=== PATIENT | male | born 1955 | race Caucasian/White ===

== ENCOUNTER 2017-06-16 14:54 | Emergency (ER) | payer SELFPAY ==
[2017-06-16 15:13] VITALS: BP 146/99
[2017-06-16] MEDS ORDERED: Sodium Chloride 0.9% 10 ML Syringe FLUSH PRN (15:50)
--- NOTE | 2017-06-16 15:58 | EDM.PDOC ---
ED HPI GENERAL MEDICAL PROBLEM - General Chief Complaint: Upper Extremity Injury/Pain Stated Complaint: SIDE PAIN Time Seen by Provider: 06/16/17 15:35 Source of Information: Reports: Patient History Limitations: Reports: No Limitations - History of Present Illness INITIAL COMMENTS - FREE TEXT/NARRATIVE: Patient is a 61-year-old male presents ED complaining of muscle spasms to his left upper extremity and thorax region. Patient states approximately one week ago he noticed his left arm was weaker and uncoordinated. He felt clumsy with it. Still able to grasp onto items but fine movements were definitely decreased. States 3 days ago noted intermittent muscle spasms to his left upper extremity and thorax region. Unclear why. He was seen by his chiropractor today when adjusting thorax spine experienced muscle spasms again that lasted about 1 -2 minutes and resolved on its own. There is no pain associated with it. He recommended patient get checked out. Of note patient does have a history of sciatica to his left lower leg has been dealing with for the past few weeks. Over the past week symptoms have improved. States it is difficult to determine if weakness to his left lower leg is due to sciatica. He has been limping with walking. He has no history of stroke. He has a history of coronary disease with one stent placement approximately 3 years ago. He takes baby aspirin and simvastatin daily. He has no history of arrhythmias. Denies any slurred speech, difficult swallowing, vision changes, headache, numbness or tingling, chest pain , shortness of breath, nausea/vomiting, abdominal pain, dysuria, claudication, or any additional complaint. Patient smokes 1.5 packs per cigarettes per day Past medical history includes hypertension, hypercholesteremia, coronary disease - Related Data Allergies Allergy/AdvReac Type Severity Reaction Status Date / Time No Known Allergies Allergy Verified 06/16/17 15:12 Home Meds: Home Meds Aspirin 81 mg PO DAILY 06/16/17 [History] Simvastatin [Zocor] 40 mg PO BEDTIME 06/16/17 [History] Past Medical History Cardiovascular History: Reports: High Cholesterol Endocrine/Metabolic History: Reports: Diabetes, Type II - Past Surgical History Cardiovascular Surgical History: Reports: Coronary Artery Stent GI Surgical History: Reports: Appendectomy Social & Family History - Tobacco Use Smoking Status *Q: Current Every Day Smoker Years of Tobacco use: 45 Packs/Tins Daily: 1 - Recreational Drug Use Recreational Drug Use: No Review of Systems - Review of Systems Review Of Systems: See Below Eyes: Denies: Blurred Vision, Tunnel Vision, Vision Change Ears: Reports: No Symptoms Nose: Reports: No Symptoms Mouth/Throat: Reports: No Symptoms Respiratory: Reports: Shortness of Breath (Chronic), Wheezing (Chronic), Cough, Sputum (Chronic chronic). Denies: Hemoptysis Cardiovascular: Denies: Chest Pain, Irregular Heart Rate, Lightheadedness, Palpitations, Syncope GI/Abdominal: Denies: Abdominal Pain, Decreased Appetite, Diarrhea, Nausea, Vomiting Genitourinary: Denies: Dysuria Musculoskeletal: Reports: Leg Pain (Sciatica left leg improving). Denies: Neck Pain, Back Pain Skin: Reports: No Symptoms Neurological: Reports: Dizziness (Intermittent), Difficulty Walking (Limping secondary to sciatica left lower leg), Weakness (Left upper or lower extremities ), Gait Disturbance. Denies: Confusion, Headache, Numbness, Paresthesia, Pre- Existing Deficit, Seizure, Tingling, Trouble Speaking ED EXAM, GENERAL - Physical Exam Exam: See Below Exam Limited By: No Limitations General Appearance: Alert, No Apparent Distress Eye Exam: Bilateral Eye: EOMI, PERRL Ears: Hearing Grossly Normal Nose: Normal Inspection, Normal Mucosa, No Blood Throat/Mouth: Normal Inspection, Normal Oropharynx, Normal Voice, No Airway Compromise Neck: Normal Inspection, Supple, Non-Tender, Full Range of Motion. No: Carotid Bruit Respiratory/Chest: No Respiratory Distress, Lungs Clear, Normal Breath Sounds, No Accessory Muscle Use, Chest Non-Tender Cardiovascular: Normal Peripheral Pulses, Regular Rate, Rhythm, No Murmur Peripheral Pulses: 2+: Radial (L), Radial (R) GI/Abdominal: Normal Bowel Sounds, Soft, Non-Tender, No Distention Extremities: Normal Inspection, Normal Range of Motion, Non-Tender, No Pedal Edema, Normal Capillary Refill Neurological: Alert, Oriented, CN II-XII Intact, Normal Cognition, No Motor/ Sensory Deficits, Other (With cerebellar function testing: Patient's finger to nose the right arm was intact. Left side was clumsy although is able to perform this. Obvious weakness noted to the left upper extremity there is to the right this is also the same for the left lower extremity. No sensory changes noted. Pronator drift was negative. Dorsiflexion and plantarflexion of the foot was intact.) Psychiatric: Normal Affect, Normal Mood Skin Exam: Warm, Dry, Intact, Normal Color Course - Vital Signs Last Recorded V/S: Last Vital Signs Temp 98.3 F 06/16/17 15:11 Pulse 91 06/16/17 15:11 Resp 16 06/16/17 15:11 BP 146/99 H 06/16/17 15:11 Pulse Ox 96 06/16/17 15:11 - Orders/Labs/Meds Labs: Laboratory Tests 06/16/17 06/16/17 06/16/17 Range/Units 16:12 16:12 16:12 WBC 9.00 (4.23-9.07) K/mm3 RBC 5.47 (4.63-6.08) M/mm3 Hgb 18.2 H (13.7-17.5) gm/L Hct 51.3 H (40.1-51.0) % MCV 93.8 H (79.0-92.2) fl MCH 33.3 H (25.7-32.2) pg MCHC 35.5 (32.2-35.5) g/dl RDW Std Deviation 48.2 H (35.1-43.9) fL Plt Count 203 (163-337) K/mm3 MPV 9.3 L (9.4-12.3) fl Neut % (Auto) 65.5 (34.0-67.9) % Lymph % (Auto) 22.4 (21.8-53.1) % [place] % (Auto) 8.9 (5.3-12.2) % Eos % (Auto) 1.7 (0.8-7.0) Baso % (Auto) 0.7 (0.1-1.2) % Neut # (Auto) 5.90 H (1.78-5.38) K/mm3 Lymph # (Auto) 2.02 (1.32-3.57) K/mm3 [place] # (Auto) 0.80 (0.30-0.82) K/mm3 Eos # (Auto) 0.15 (0.04-0.54) K/mm3 Baso # (Auto) 0.06 (0.01-0.08) K/mm3 PT 10.3 (8.0-13.0) SECONDS INR 0.95 APTT 26 (22-36) SECONDS Sodium 139 (136-145) mEq/L Potassium 4.4 (3.5-5.1) mEq/L Chloride 103 (98-107) mEq/L Carbon Dioxide 29 (21-32) mEq/L Anion Gap 11.4 (5-15) BUN 11 (7-18) mg/dL Creatinine 0.9 (0.7-1.3) mg/dL Est Cr Clr Drug Dosing 89.00 mL/min Estimated GFR (MDRD) > 60 (>60) mL/min BUN/Creatinine Ratio 12.2 L (14-18) Glucose 299 H (80-115) mg/dL Calcium 9.1 (8.5-10.1) mg/dL Total Bilirubin 1.4 H (0.2-1.0) mg/dL AST 21 (15-37) U/L ALT 30 (16-63) U/L Alkaline Phosphatase 95 (46-116) U/L Total Protein 7.4 (6.4-8.2) g/dl Albumin 3.5 (3.4-5.0) g/dl Globulin 3.9 gm/dL Albumin/Globulin Ratio 0.9 L (1-2) TSH 3rd Generation 1.374 (0.358-3.74) uIU/mL Meds: Medications Discontinued Medications Generic Name Dose Route Start Last Admin Trade Name Freq PRN Reason Stop Dose Admin Aspirin 243 mg 06/16/17 17:34 06/16/17 17:39 Aspirin PO 06/16/17 17:35 243 mg ONETIME ONE Administration Sodium Chloride 10 ml 06/16/17 15:50 06/16/17 16:14 Saline Flush FLUSH 10 ml ASDIRECTED PRN Administration Keep Vein Open - Re-Assessments/Exams Free Text/Narrative Re-Assessment/Exam: Symptoms started approx one week ago and thus for the past few days developed a spasm sensation in the left upper thorax and left arm. Obvious weakness the left upper lower extremity. Concerning for stroke. He does have a history coronary disease, hypertension, hypercholesteremia, and smoking. History taken aspirin 81 mg and simvastatin 40 mg daily. He is taking all his medications as prescribed. Will have IV established with initial labs including: CBC, chem 14, CRP, TSH, and coag studies. EKG, chest x-ray, head CT without contrast will be obtained. 06/16/17 17:34Labs reviewed: White blood cell count 9.0, hemoglobin 18.2, coags normal, sodium 139, potassium 4.4, CO2 29, AG 11.4, creatinine 0.9, glucose 299 , total bilirubin 1.4, TSH 1.374. EKG: Sinus rhythm at a rate of 79 Q waves inferior leads, left anterior fascicular block, no acute ST changes noted. Chest x-ray reviewed: Cardiomegaly, flattening of the diaphragms with hyperinflation, no acute findings noted. Final interpretation is pending. Reviewed with Dr. Valencia. Head CT impression: Small focal area of low density within the posterior right parietal region. This findings is most likely due to old infarct although MRI study with contrast recommended to make sure this does not represent other abnormality. Mild senescent change as described above. No acute intracranial abnormality is identified. Ordered an additional 243mg of ASA PO. Symptoms unchanged. Patient wishing to be discharged home. I spent considerable amount of time in explaining with him why close followup with PCP and neurology is required. Outpatient orders for MRI of the Brain, Echocardiogram, and carotid duplex placed. They will contact him with appt time. Departure - Departure Time of Disposition: 18:00 Disposition: Home, Self-Care 01 Clinical Impression: Left-sided muscle weakness CVA (cerebral vascular accident) Qualifiers: CVA mechanism: unspecified Qualified Code(s): I63.9 - Cerebral infarction, unspecified - Discharge Information Instructions: Stroke Prevention, [id number] Referrals: Alena Cornejo, [facility] [Primary Care Provider] - Forms: ED Department Discharge Additional Instructions: Start taking a although dose aspirin daily, 324 mg by mouth. Blood sugar was quite elevated with admission to the ED. You need to get better control of this. Due to concern of having a left-sided stroke with obvious weakness to her left and upper extremities I ordered MRI of the brain with contrast, echocardiogram, and carotid duplex ultrasounds. Please follow up with her PCP to discuss risk stratification and results of studies and of this week. They will call you tomorrow to schedule an appointment at the studies completed this week. Call and make an appointment with her PCP to tomorrow. Return to the ED for any new or worsening symptoms as discussed. Continue taking all your home medications as prescribed.
--- NOTE | 2017-06-16 16:29 | CT ---
Head CT Technique: Multiple axial sections through the brain were obtained. Intravenous contrast was not utilized. Comparison: No previous intracranial imaging. Findings: Ventricles along with basal cisterns and sulci over convexities are mildly prominent. Focal area of low density is seen posteriorly within the right parietal lobe. Minimal diminished density is noted within the periventricular white matter. No other abnormal parenchymal densities are seen. No evidence of intracranial hemorrhage. No midline shift or mass effect is seen. Bone window settings were reviewed which shows no discrete calvarial abnormality. Minimal mucosal thickening is seen within the left maxillary sinus which is felt to be incidental. No acute calvarial abnormality is identified. Atherosclerotic calcification is seen within the carotid siphon and vertebral vessels. Impression: 1. Small focal area of low density within the posterior right parietal region. This finding is most likely due to old infarct although MRI study with contrast recommended to make sure this does not represent other abnormality. 2. Mild senescent change as described above. 3. No acute intracranial abnormality is identified. Diagnostic code #9
[2017-06-16] MEDS ORDERED: Aspirin 81 MG Tab.Chew PO ONE (17:34)
--- NOTE | 2017-06-17 12:54 | CR ---
Chest: Portable view of the chest was obtained. Comparison: Previous chest x-ray of 10/29/10. Heart size and mediastinum are within normal limits for portable technique. Lungs are clear. Bony structures are grossly intact. Impression: 1. Nothing acute is appreciated on portable chest x-ray. Diagnostic code #1
== END 2017-06-16 18:00 | disposition home or self-care (01) ==
LOC: JD.ED 14:54
DX: I63.9 Cerebral infarction, unspecified (principal); E78.00 Pure hypercholesterolemia, unspecified; E11.9 Type 2 diabetes mellitus without complications; F17.210 Nicotine dependence, cigarettes, uncomplicated; Z79.82 Long term (current) use of aspirin
CPT/HCPCS: 36415; 70450; 71010; 80053; 84443; 85025; 85610; 85730; 93005; 99285; A9270; J7050